=== PATIENT | female | born 1980 | race Caucasian/White ===

== ENCOUNTER 2018-09-05 14:39 | Emergency (ER) | payer OTHER ==
[~2018-09-05] VITALS: Ht 175.3 cm; Wt 84.9 kg
[2018-09-05] MEDS ORDERED: PROCHC RC (15:07)
== END 2018-09-05 15:24 | disposition home or self-care (01) ==
LOC: ER 14:40
DX: K64.4 Residual hemorrhoidal skin tags (principal); Z88.8 Allergy status to other drugs, medicaments and biological substances; Z79.899 Other long term (current) drug therapy
CPT/HCPCS: 99283